=== PATIENT | male | born 1985 | race Caucasian/White ===

== ENCOUNTER 2017-05-03 19:29 | Emergency (ER) | payer BC ==
[2017-05-03 19:34] VITALS: BP 121/75; PULSE 69; RESP 18; TEMP 98.6; O2SAT 96
[2017-05-03] MEDS ORDERED: predniSONE 20 MG TAB PO ONE (19:48)
--- NOTE | 2017-05-03 19:48 | EDPHY ---
H & P Time Seen by Provider: 05/03/17 19:41 HPI/ROS: CHIEF COMPLAINT: Skin rash HISTORY OF PRESENT ILLNESS: Patient slipped outside about a week ago in the next day noticed 2 lesions on the back of his left calf. Since then they have spread especially of his left calf to his left thigh posteriorly and also on his right calf. There vesicular and itchy but no known new contact with plants or others. Not painful. No pus or drainage. No fevers or chills. REVIEW OF SYSTEMS: As above PAST MEDICAL HISTORY: Negative Social history: No drugs General Appearance: Alert and conversant, cooperative. Patient has multiple scattered vesicular lesions more on the left posterior leg than the right. There are to central ones with some scabbing on the left posterior calf. There is no lymphangitis. No tenderness to palpation. No surrounding erythema and no pus or drainage. Compartments are soft. Normal motor and sensory in both feet. Does not look systemically ill. Emergency Department course/MDM: Patient presents with clinically contact dermatitis though no known contacts. It is itchy and he does not have clinical features of cellulitis or fasciitis. Plan for oral prednisone and primary care follow-up. I think this is not likely to be zoster. Smoking Status: Never smoked Constitutional: Initial Vital Signs Temperature (C) 37.0 C 05/03/17 19:31 Heart Rate 69 05/03/17 19:31 Respiratory Rate 18 05/03/17 19:31 Blood Pressure 121/75 H 05/03/17 19:31 O2 Sat (%) 96 05/03/17 19:31 O2 Delivery Mode Room Air Allergies/Adverse Reactions: No Known Allergies Allergy (Unverified 05/03/17 19:34) Home Medications: Medication Instructions Recorded predniSONE 10 mg PO AD #15 tab 05/03/17 MDM/Departure - MDM Medications Given: Discontinued Medications Prednisone (Prednisone) 60 mg PO EDNOW ONE Stop: 05/03/17 19:49 Last Admin: 05/03/17 19:53 Dose: 60 mg - Depart Disposition: Home, Routine, Self-Care Clinical Impression: Contact dermatitis Qualifiers: Contact dermatitis type: allergic Contact dermatitis trigger: unspecified trigger Qualified Code(s): L23.9 - Allergic contact dermatitis, unspecified cause Condition: Good Instructions: Contact Dermatitis (ED) Prescriptions: predniSONE 10 mg PO AD #15 tab Referrals: SNEHAL STRICKLAND [Primary Care Provider] - As per Instructions
== END 2017-05-03 20:04 | disposition home or self-care (01) ==
DX: L23.9 Allergic contact dermatitis, unspecified cause (principal)

== ENCOUNTER 2017-07-01 02:36 | Emergency (ER) | payer BC ==
--- NOTE | 2017-07-01 02:42 | CPEKG ---
Heart Rate: 54 RR Interval: 1111 P-R Interval: 164 QRSD Interval: 94 QT Interval: 424 QTC Interval: 402 P [place]: 61 QRS [place]: 76 T Wave [place]: 47 EKG Severity - NORMAL ECG - EKG Impression: SINUS RHYTHM EKG Impression: ST ELEV, PROBABLE NORMAL EARLY REPOL PATTERN Electronically Signed By: Martin Moon 01-Jul-2017 07:13:04
[2017-07-01 02:46] VITALS: RESP 16; TEMP 98.1; O2SAT 98
--- NOTE | 2017-07-01 03:20 | EDPHY ---
H & P Stated Complaint: WOKE WITH TINGELING TO R ARM, RESOLVED NOW Time Seen by Provider: 07/01/17 03:11 HPI/ROS: Chief Complaint: Right arm tingling HPI: 32-year-old male woke up this morning with a pins and needle sensation in his right arm. He had been laying on it. Patient laid on his back and waited symptoms persisted for over 5 minutes which concerned him so he called 911. Symptoms have since resolved. Does not have a family history of coronary artery disease. Did not have any chest pain or shortness of breath. He did check his pulse and thought it felt "thready". No recent illness. No nausea or vomiting. Patient states he feels completely normal emergency department. ROS: 10 point Review of Systems is negative except as noted in the HPI. PMH: Hypo testosterone Medications: Testosterone gel Allergies: No known drug allergies Social History: No smoking, occasional alcohol, no recreational drug use Family History: No family history of coronary artery disease Physical Exam: Gen: Awake, Alert, No Distress HEENT: Nose: no rhinorrhea Eyes: PERRLA, EOMI Mouth: Moist mucosa Neck: Supple, no JVD Chest: nontender, lungs clear to auscultation Heart: S1, S2 normal, no murmur Abd: Soft, non-tender, no guarding Back: no CVA tenderness, no midline tenderness Ext: no edema, non-tender Skin: no rash Neuro: CN II-XII intact, Sensation grossly intact, Strength 5/5 in bilateral upper and lower extremities Right arm is completely normal in the radial, median and ulnar nerve distribution. Capillary refills less than 2 seconds. He has full flexion extension strength in all muscle groups. - Personal History Current Tetanus/Diphtheria Vaccine: Unsure Current Tetanus Diphtheria and Acellular Pertussis (TDAP): Unsure - Medical/Surgical History Hx Asthma: No Hx Chronic Respiratory Disease: No Hx Diabetes: No Hx Cardiac Disease: No Hx Renal Disease: No Hx Cirrhosis: No Hx Alcoholism: No Hx HIV/AIDS: No Hx Splenectomy or Spleen Trauma: No Other PMH: DENIES - Social History Smoking Status: Never smoked Constitutional: Initial Vital Signs Temperature (C) 36.7 C 07/01/17 02:36 Heart Rate 56 L 07/01/17 02:36 Respiratory Rate 16 07/01/17 02:36 Blood Pressure 149/71 H 07/01/17 02:36 O2 Sat (%) 98 07/01/17 02:36 O2 Delivery Mode Room Air Allergies/Adverse Reactions: No Known Allergies Allergy (Unverified 07/01/17 02:46) Home Medications: Medication Instructions Recorded Testosterone [Androgel] 1.25 gm TD 07/01/17 Medical Decision Making - Diagnostics EKG Interpretation: ECG time 2:40 a.m. sinus rhythm with a rate of 54. There is early repolarization pattern. Normal intervals, no acute ST or T-wave abnormalities otherwise. Impression: Normal ECG. ED Course/Re-evaluation: 32-year-old male with right arm numbness after waking up this morning probably secondary to sleeping on it. He is neurologically completely intact now. No risk factors for coronary disease. He has a normal ECG. Will discharge with follow-up with primary care physician as needed. Departure - Departure Disposition: Home, Routine, Self-Care Clinical Impression: Paresthesia Condition: Good Instructions: Paresthesia (ED) Additional Instructions: Return to the emergency department for numbness that occurs when you are not sleeping, chest pain, shortness of breath, fainting, or any other concerns. Follow up with primary care physician in 2-3 days for re-evaluation. Referrals: SNEHAL STRICKLAND [Primary Care Provider] - As per Instructions
[2017-07-01 04:09] VITALS: BP 113/90; PULSE 65
== END 2017-07-01 04:08 | disposition home or self-care (01) ==
LOC: EDUNIT#
DX: R20.2 Paresthesia of skin (principal)